=== PATIENT | male | born 1980 | race Asian ===

== ENCOUNTER 2021-01-14 19:33 | Emergency (ER) | payer OTHER ==
[2021-01-14] MEDS ORDERED: methylPREDNISolone NA SUCC 125 MG/2 ML VIAL IVPUSH ONE (19:47)
[2021-01-14 19:52] VITALS: BP 150/90; PULSE 81; TEMP 98.8; BMI 69.2
[2021-01-14] MEDS ORDERED: SODIUM CHLORIDE 1,000 ML IV SCH (20:00)
[2021-01-14] MEDS ORDERED: methylPREDNISolone NA SUCC 125 MG/2 ML VIAL ONE (20:03)
[2021-01-14] MEDS ORDERED: predniSONE 20 MG TABLET (UD) PO ONE (20:23)
== END 2021-01-14 21:38 | disposition home or self-care (01) ==
LOC: FER 19:33
DX: T78.40XA Allergy, unspecified, initial encounter (principal)
CPT/HCPCS: 99283-25